=== PATIENT | female | born 1930 | race Two or more races ===

== ENCOUNTER 2017-09-27 09:26 | Emergency (ER) | payer OTHER ==
[~2017-09-27] VITALS: Ht 165.1 cm; Wt 64.9 kg
[~2017-09-27 09:26] MED LIST: AMLO5TAB2 PO; ATEN50TA PO; CIMZIA; FOLI1TAB6 OR; LEVO100T8 PO; MELO1TAB73 OR; OMEP20TA34 OR; SIMV10TA84 PO; methotrexate
[2017-09-27 09:47] VITALS: BP 132/71
[2017-09-27] MEDS ORDERED: ALBUTEROL SULF 2.5 MG/0.5ML(0.5%) NEB SOLN NEB ONE (11:00)
[2017-09-27] MEDS ORDERED: methylPREDNISolone SOD SUCC 125 MG/2 ML VL IM ONE (11:00)
[2017-09-27] MEDS ORDERED: IPRATROPIUM BROM 0.5 MG/2.5ML INH SOL NEB ONE (11:00)
== END 2017-09-27 12:15 | disposition home or self-care (01) ==
LOC: ER 09:26
DX: J40 Bronchitis, not specified as acute or chronic (principal); I25.10 Atherosclerotic heart disease of native coronary artery without angina pectoris; I10 Essential (primary) hypertension; M19.90 Unspecified osteoarthritis, unspecified site; Z90.49 Acquired absence of other specified parts of digestive tract; Z90.710 Acquired absence of both cervix and uterus
CPT/HCPCS: 71046; 93005; 96372; 99284; J2930